=== PATIENT | female | born 1990 | race American Indian/Alaskan Native ===

== ENCOUNTER 2021-05-18 11:29 | Emergency (ER) | payer OTHER ==
[2021-05-18] MEDS ORDERED: IPRATROPIUM/ALBUTEROL SULFATE 3 ML AMPUL.NEB IH ONE ×2 (11:35→11:48)
[2021-05-18] MEDS ORDERED: ALBUTEROL 2.5 MG/3 ML NEBU IH ONE (11:40)
[2021-05-18] MEDS ORDERED: IPRATROPIUM 0.02% NEBU 2.5 ML IH ONE (11:40)
--- NOTE | 2021-05-18 11:44 | Emergency Department Report ---
ED Asthma HPI - General Chief Complaint: Dyspnea/Respdistress Stated Complaint: ASTHMA Time Seen by Provider: 05/18/21 11:38 Source: EMS Mode of arrival: Stretcher Limitations: No Limitations - History of Present Illness Initial Comments: Patient is a 30-year-old F [place] female who is presenting with asthma exacerbation. Patient has a history of asthma which is normally controlled with her albuterol inhaler. Patient states over the last 2 days she is use her inhaler at least 40 times. States she still continues to have shortness of breath. Denies any fevers chills body aches or fever. In route the patient received 5 mg of albuterol Solu-Medrol and 2 g of magnesium were hung. Patient feels some mild relief after the first treatment. - Related Data Previous Rx's Medication Instructions Recorded Last Taken Type Albuterol Sulfate [Proventil Hfa] 2 puff IH Q4HR PRN #1 hfa.aer.ad 05/18/21 Unknown Rx Benzonatate [Tessalon Perles] 100 mg PO Q8HR #10 capsule 05/18/21 Unknown Rx predniSONE [Deltasone] 50 mg PO QDAY #5 tab 05/18/21 Unknown Rx Allergies Allergy/AdvReac Type Severity Reaction Status Date / Time Penicillins Allergy Rash Verified 05/18/21 11:53 ED Review of Systems ROS: Stated complaint: ASTHMA Other details as noted in HPI Comment: All other systems reviewed and negative ED Past Medical Hx - Past Medical History Previous Medical History?: Yes Hx Arthritis: Yes Additional medical history: bronchitis - Social History Smoking Status: Unknown if ever smoked Substance Use Type: None - Medications Home Medications: Home Medications Medication Instructions Recorded Confirmed Last Taken Type Albuterol Sulfate [Proventil Hfa] 2 puff IH Q4HR PRN #1 hfa.aer.ad 05/18/21 Unknown Rx Benzonatate [Tessalon Perles] 100 mg PO Q8HR #10 capsule 05/18/21 Unknown Rx predniSONE [Deltasone] 50 mg PO QDAY #5 tab 05/18/21 Unknown Rx ED Physical Exam - General Limitations: No Limitations General appearance: alert, in no apparent distress - Head Head exam: Present: atraumatic, normocephalic - Eye Eye exam: Present: normal appearance - ENT ENT exam: Present: mucous membranes moist - Neck Neck exam: Present: normal inspection - Respiratory Respiratory exam: Present: respiratory distress, wheezes. Absent: normal lung sounds bilaterally, rales, rhonchi - Cardiovascular Cardiovascular Exam: Present: normal rhythm, tachycardia, normal heart sounds. Absent: systolic murmur, diastolic murmur, rubs, gallop - GI/Abdominal GI/Abdominal exam: Present: soft, normal bowel sounds. Absent: distended, tenderness, guarding, rebound - Extremities Exam Extremities exam: Present: normal inspection - Back Exam Back exam: Present: normal inspection - Neurological Exam Neurological exam: Present: alert, oriented X3 - Psychiatric Psychiatric exam: Present: normal affect, normal mood - Skin Skin exam: Present: warm, dry, intact, normal color. Absent: rash ED Course Vital Signs 05/18/21 05/18/21 05/18/21 11:38 11:39 11:50 Temperature 97.4 F L 97.4 F L Pulse Rate 127 H 127 H Respiratory 22 22 24 Rate Blood Pressure 105/66 Blood Pressure 105/66 [Right] O2 Sat by Pulse 99 99 100 Oximetry 05/18/21 12:46 Temperature Pulse Rate 128 H Respiratory 19 Rate Blood Pressure Blood Pressure 110/89 [Right] O2 Sat by Pulse 100 Oximetry - Reevaluation(s) Reevaluation #1: 05/18/21 13:04 Patient received hour-long neb treatment here and is feeling much improved. Lungs are clear. Patient stable for discharge. Critical care attestation.: If time is entered above; I have spent that time in minutes in the direct care of this critically ill patient, excluding procedure time. ED Disposition Clinical Impression: Asthma exacerbation Disposition: 01 HOME / SELF CARE / HOMELESS Is pt being admited?: No Does the pt Need Aspirin: No Condition: Stable Instructions: Asthma, Adult Time of Disposition: 13:05
[2021-05-18 12:47] VITALS: BP 110/89
== END 2021-05-18 15:32 | disposition home or self-care (01) ==
LOC: ED 11:29
DX: J45.901 Unspecified asthma with (acute) exacerbation (principal); M19.90 Unspecified osteoarthritis, unspecified site; Z88.0 Allergy status to penicillin; Z79.899 Other long term (current) drug therapy
CPT/HCPCS: 94640; 94644; 99283

== ENCOUNTER 2022-03-21 04:38 | Emergency (ER) | payer OTHER ==
[2022-03-21 04:48] VITALS: BP 136/86
== END 2022-03-22 02:00 | disposition left against medical advice (07) ==
LOC: ED 04:38
DX: J45.901 Unspecified asthma with (acute) exacerbation (principal); Z53.21 Procedure and treatment not carried out due to patient leaving prior to being seen by health care provider